=== PATIENT | female | born 1945 | race Hispanic/Latino ===

== ENCOUNTER 2018-05-20 15:39 | Inpatient (IN) | payer MEDICARE ==
[2018-05-20] MEDS ORDERED: DILAUDID ONE (15:59)
[2018-05-20] MEDS ORDERED: DILAUDID IV ONE (16:00)
--- NOTE | 2018-05-20 16:12 | Emergency Department Report ---
ED Lower Extremity HPI - General Chief Complaint: Extremity Injury, Lower Stated Complaint: FELL ON LEFT ANKLE Time Seen by Provider: 05/20/18 16:07 Source: patient, EMS Mode of arrival: Stretcher Limitations: No Limitations - History of Present Illness Initial Comments: Patient states he was stepping down a curb and twisted ankle. Complaint: ankle injury -: Sudden, This afternoon Injury: Ankle: Left Type of Injury: eversion Place: home Severity: severe Severity scale (0 -10): 10 Improves With: immobilization, rest Worsens With: movement Context: walking Associated Symptoms: unable to bear weight Treatments Prior to Arrival: splint - Related Data Allergies Allergy/AdvReac Type Severity Reaction Status Date / Time No Known Allergies Allergy Verified 05/20/18 16:12 ED Review of Systems ROS: Stated complaint: FELL ON LEFT ANKLE Other details as noted in HPI Comment: All other systems reviewed and negative Constitutional: denies: chills, fever Eyes: denies: eye pain ENT: denies: ear pain Respiratory: denies: cough, shortness of breath Cardiovascular: denies: chest pain, palpitations, dyspnea on exertion Endocrine: no symptoms reported Gastrointestinal: denies: abdominal pain, nausea, vomiting, diarrhea Genitourinary: denies: urgency, dysuria, frequency Musculoskeletal: joint swelling, other (Left ankle pain and deformity). denies : back pain Skin: denies: rash, change in color Neurological: denies: headache, weakness, numbness Psychiatric: denies: anxiety, depression Hematological/Lymphatic: denies: easy bleeding, easy bruising ED Past Medical Hx - Past Medical History Previous Medical History?: Yes Hx Hypertension: Yes Hx Diabetes: Yes - Surgical History Past Surgical History?: Yes - Social History Smoking Status: Never Smoker Substance Use Type: None ED Physical Exam - General Limitations: No Limitations General appearance: alert, in distress - Head Head exam: Present: atraumatic, normocephalic, normal inspection - Eye Eye exam: Present: normal appearance, PERRL, EOMI Pupils: Present: normal accommodation - ENT ENT exam: Present: normal exam, normal orophraynx, mucous membranes moist - Neck Neck exam: Present: normal inspection, full ROM. Absent: tenderness - Respiratory Respiratory exam: Present: normal lung sounds bilaterally. Absent: respiratory distress, wheezes, rales, rhonchi - Cardiovascular Cardiovascular Exam: Present: regular rate, normal rhythm, normal heart sounds - GI/Abdominal GI/Abdominal exam: Present: soft, normal bowel sounds. Absent: distended, tenderness, guarding, rebound - Extremities Exam Extremities exam: Present: normal capillary refill, joint swelling, other (Left ankle deformity due to dislocation.) ED Course Vital Signs 05/20/18 05/20/18 05/20/18 15:55 17:26 17:30 Temperature 97.8 F Pulse Rate 68 Pulse Rate [ Intra-Procedure ] Pulse Rate [ Post-Procedure] Respiratory 19 Rate Respiratory Rate [Intra- Procedure] Respiratory Rate [Post- Procedure] Blood Pressure 154/53 154/53 Blood Pressure [Intra- Procedure] Blood Pressure [Post-Procedure ] Blood Pressure 140/68 [Right] O2 Sat by Pulse 99 98 98 Oximetry O2 Sat by Pulse Oximetry [ Intra-Procedure ] O2 Sat by Pulse Oximetry [Post -Procedure] 05/20/18 05/20/18 05/20/18 17:46 18:00 18:29 Temperature Pulse Rate 61 64 Pulse Rate [ 64 Intra-Procedure ] Pulse Rate [ Post-Procedure] Respiratory 17 12 Rate Respiratory 12 Rate [Intra- Procedure] Respiratory Rate [Post- Procedure] Blood Pressure 136/56 134/55 Blood Pressure 173/64 [Intra- Procedure] Blood Pressure [Post-Procedure ] Blood Pressure [Right] O2 Sat by Pulse 99 98 Oximetry O2 Sat by Pulse 100 Oximetry [ Intra-Procedure ] O2 Sat by Pulse Oximetry [Post -Procedure] 05/20/18 18:34 Temperature Pulse Rate Pulse Rate [ Intra-Procedure ] Pulse Rate [ 62 Post-Procedure] Respiratory Rate Respiratory Rate [Intra- Procedure] Respiratory 16 Rate [Post- Procedure] Blood Pressure Blood Pressure [Intra- Procedure] Blood Pressure 167/62 [Post-Procedure ] Blood Pressure [Right] O2 Sat by Pulse Oximetry O2 Sat by Pulse Oximetry [ Intra-Procedure ] O2 Sat by Pulse 100 Oximetry [Post -Procedure] - Reevaluation(s) Reevaluation #1: 05/20/18 19:12 [employer] Res[employer]cher did decrease surgeon on-call Dr. Lux. He recommend reducing the ankle dislocation and splinting it. He wants the hospitalist to admit patient for surgery tomorrow. Reevaluation #2: 05/20/18 19:18 Patient care was discussed with the hospitalist on-call Dr Mccarthy. He will admit patient to the hospital for further evaluation and management. - Orthopedic Joint Reduction Joint #1 Consent Obtained: verbal consent, written consent Time Out Performed: Yes Side: left Joint Reduction Location: ankle Analgesia: other (Conscious sedation) Local Anesthetic Used: other anesthetic (Etomidate) Amount of Anesthetic Used (mls): 3 (6 mg) Technique Used: direct manipulation Post-Reduction Neuro Exam: intact Post-Reduction Vascular Exam: intact Post Reduction X-Ray Obtained: Yes Post Reduction X-Ray Results: reduced Splint Applied: Yes Patient Tolerated Procedure: well ED Lower Extremity MDM - Lab Data Result diagrams: 05/20/18 16:27 05/20/18 16:27 - Radiology Data Radiology results: report reviewed, image reviewed - Medical Decision Making Left Ankle Fracture/Dislocation. Critical Care Time: Yes Critical care time in (mins) excluding proc time.: 65 Critical care attestation.: If time is entered above; I have spent that time in minutes in the direct care of this critically ill patient, excluding procedure time. ED Disposition Clinical Impression: Dislocation of left ankle joint, initial encounter Dislocation of distal end of left fibula Qualifiers: Encounter type: initial encounter Qualified Code(s): S93.05XA - Dislocation of left ankle joint, initial encounter Disposition: OP ADMIT IP TO THIS HOSP Is pt being admited?: Yes Does the pt Need Aspirin: No Condition: Stable Referrals: PRIMARY CARE,MD [Primary Care Provider] - 3-5 Days Time of Disposition: 19:00
[2018-05-20 16:40] LABS: Basophils # (Auto) 0.1 K/mm3 (0.0-0.1); Basophils % (Auto) 0.7 % (0.0-1.8); Eosinophils # (Auto) 0.3 K/mm3 (0.0-0.4); Eosinophils % (Auto) 1.8 % (0.0-4.3); Hematocrit 36.8 % (30.3-42.9); Hemoglobin 12.4 gm/dl (10.1-14.3); Lymphocytes # (Auto) 2.5 K/mm3 (1.2-5.4); Lymphocytes % (Auto) 17.6 % (13.4-35.0); Mean Corpuscular HGB Conc 34 % (30-34); Mean Corpuscular Hemoglobin 30 pg (28-32); Mean Corpuscular Volume 88 fl (79-97); Monocytes # (Auto) 0.9 K/mm3 (0.0-0.8); Monocytes % (Auto) 6.7 % (0.0-7.3); Platelet Count 231 K/mm3 (140-440); Red Blood Count 4.17 M/mm3 (3.65-5.03); Red Cell Distribution Width 13.7 % (13.2-15.2)
[2018-05-20 16:48] LABS: INR 0.88 (0.87-1.13); Partial Thromboplastin Time 23.3 Sec. (24.2-36.6)
--- NOTE | 2018-05-20 17:03 | XRay Report ---
FINAL REPORT EXAM: XR FOOT 2V LT HISTORY: post fall, obvious deformity TECHNIQUE: AP and lateral views of the left foot PRIORS: None. FINDINGS: There is an acute fracture/dislocation of the ankle. Comminuted fracture of the distal fibula is seen and dislocation of the tibiotalar joint is noted. No other fractures. Or dislocations involving the foot are noted. Spurring off the dorsum of the tarsometatarsal junctions and off the plantar calcaneus is noted. IMPRESSION: Acute fracture/dislocation of the ankle
[2018-05-20] MEDS ORDERED: BOOSTRIX IM ONE (17:08)
--- NOTE | 2018-05-20 17:09 | XRay Report ---
FINAL REPORT EXAM: XR TIBIA FIBULA 2V LT HISTORY: post fall leg pain TECHNIQUE: AP and lateral views of the left fibula PRIORS: None. FINDINGS: There is an acute fracture/dislocation at the ankle. Dislocation at the tibiotalar joint is noted with angulation the directed medially. The tibial shaft is located medial to the talus. There is an oblique acute fracture of the distal fibula with angulation. The apex is directed in a medial direction. Overriding of the fracture fragments is noted. The fibular shaft fragment maintains articulation with the distal tibia. IMPRESSION: Acute fracture/dislocation at the ankle.
--- NOTE | 2018-05-20 17:10 | XRay Report ---
FINAL REPORT EXAM: XR ANKLE 2V LT HISTORY: post fall, obvious deformity TECHNIQUE: AP and lateral views of the left ankle PRIORS: None. FINDINGS: There is an acute fracture/dislocation of the ankle. The tibiotalar joint is dislocated with angulation and the apex directed medially. The tibial shaft is displaced medial to the talar dome. There is an acute oblique fracture through the distal fibular shaft. Overriding the fracture fragments is noted. Angulation is also noted directed medially. IMPRESSION: Acute fracture/dislocation of the ankle.
[2018-05-20 17:14] LABS: Alanine Aminotransferase 16 units/L (7-56); BUN/Creatinine Ratio 23; Blood Urea Nitrogen 21 mg/dL (7-17); Calcium 8.7 mg/dL (8.4-10.2); Hemolysis Index 6
[2018-05-20] MEDS ORDERED: NACL 0.9% 1000 ML 1,000 ML ONE (17:54)
[2018-05-20] MEDS ORDERED: NACL 0.9% 1000 ML 1,000 ML IV ONE (17:55)
[2018-05-20] MEDS ORDERED: AMIDATE IV ONE ×2 (18:09→18:36)
--- NOTE | 2018-05-20 20:47 | XRay Report ---
FINAL REPORT EXAM: XR ANKLE 2V LT HISTORY: Post reduction TECHNIQUE: AP and lateral views of the left ankle PRIORS: left ankle x-rays 05/20/2018 at 2047 hours FINDINGS: Overlying splint is now in place. There has been successful repositioning of the dislocation. However, there is still widening of the medial aspect of the tibiotalar joint. Positioning of the tibia and talus on the lateral film is satisfactory. There is still mild overriding of the oblique fracture fragments of the distal fibula. IMPRESSION: Improved positioning and reduction of the tibiotalar dislocation. There is still widening of the tibiotalar joint medially. There also some persistent overriding of the oblique fracture fragments in the fibula.
[2018-05-20] MEDS ORDERED: TYLENOL PO PRN ×2 (23:02→23:09)
--- NOTE | 2018-05-20 23:02 | Event Note ---
Date: 05/20/18 See dictated history and physical in the reports Ankle fracture
[2018-05-20] MEDS ORDERED: ZOFRAN IV PRN (23:09)
[2018-05-20] MEDS ORDERED: SODIUM CHLORIDE FLUSH SYRINGE 10 ML IV PRN (23:09)
[2018-05-20] MEDS: MORPHINE IV PRN (23:16)
--- NOTE | 2018-05-20 23:38 | History and Physical Report ---
CHIEF COMPLAINT: Left ankle injury. HISTORY OF PRESENT ILLNESS: A 72-year-old female with no significant past medical history except for hypertension and diabetes, comes in for missing a step and twisting her ankle. Unable to walk, severe pain about 10/10. Any pressure on the ankle causes lot of pain. Exacerbating factor is weightbearing, relieving factor is lying flat. Pain is sharp. No shortness of breath. No fever, no chills. PAST MEDICAL HISTORY: Significant for hypertension, diabetes. PAST SURGICAL HISTORY: None. SOCIAL HISTORY: Does not smoke. No alcohol, no recreational drugs. FAMILY HISTORY: Hypertension. REVIEW OF SYSTEMS: Significant for left ankle pain and swelling. Unable to bear any weight. Otherwise, review of systems is negative. PHYSICAL EXAMINATION: GENERAL: Elderly female, cooperative during examination. VITAL SIGNS: Blood pressure is 121/47, temperature is 98.5, pulse is 62, respirations are 14. HEENT: Unremarkable. Pupils equal and reactive. NECK: Supple, no lymphadenopathy, no thyromegaly. LUNGS: Clear to auscultation and percussion. Good air entry. CARDIOVASCULAR: S1, S2 heard. No gallop, no murmur, no rub. Apical impulse in left fifth intercostal space and midclavicular line. ABDOMEN: Soft and benign. No hepatosplenomegaly. No guarding, no rigidity. Hernial orifices are normal. EXTREMITIES: Left ankle swollen. Decreased range of motion. Ankle x-ray shows an acute fracture and dislocation of the ankle. The tibiotalar joint is dislocated with ambulation in the apex directed medially. The tibial shaft is displaced medial to the talar dome. Acute oblique fracture through the distal fibular shaft. LABORATORY DATA: White count is 14,000. Electrolytes are normal. Glucose is 151, total protein is 6.1, albumin is 4.0. Glucose is 151. ASSESSMENT AND PLAN: 1. Left ankle fracture. The patient has had dislocation also, which was corrected in the Emergency Room after giving etomidate. It was done by the ER physician. The patient has fibular fracture. Orthopedics, Dr. Lux consulted. Pain management in the meantime. 2. Hypertension. The patient not on any medications. Blood pressure is normal at this point. We will initiate blood pressure medications if necessary. 3. Diabetes by history. We will initiate oral hypoglycemics as necessary. The patient put on Accu-Cheks. A1c is 6.1. 4. Deep venous thrombosis prophylaxis, Lovenox 40 mg subcutaneous daily. 5. Pain management, Dilaudid. Morphine 4 mg q.3 hours p.r.n. JOB# [id number] VSM/NTS
[2018-05-21] MEDS: PERCOCET 5/325 PO PRN (00:31)
[2018-05-21] MEDS: DILAUDID IV PRN ×5 (01:00→23:20)
[2018-05-21] MEDS: HumaLOG SUB-Q SCH ×4 (08:35→22:00)
[2018-05-21] MEDS: ZOFRAN IV PRN ×2 (09:53→19:25)
[2018-05-21] MEDS: MORPHINE IV PRN (09:53)
[2018-05-21] MEDS: PEPCID IV SCH ×2 (09:54→21:55)
[2018-05-21] MEDS: SODIUM CHLORIDE FLUSH SYRINGE 10 ML IV SCH (09:54)
[2018-05-21] MEDS ORDERED: SODIUM CHLORIDE FLUSH SYRINGE 10 ML IV SCH (10:00)
[2018-05-21] MEDS ORDERED: NACL 0.9% 1000 ML 1,000 ML ONE (15:01)
--- NOTE | 2018-05-21 15:01 | Anesthesia Consultation ---
Anesthesia Consult and Med Hx Date of service: 05/21/18 - Airway Anesthetic Teeth Evaluation: Poor, Caps, Crowns ROM Head & Neck: Adequate Mental/Hyoid Distance: Inadequate Mallampati Class: Class III Intubation Access Assessment: Possibly Difficult - Pulmonary Exam CTA: Yes - Cardiac Exam Cardiac Exam: No Murmur - Pre-Operative Health Status ASA Pre-Surgery Classification: ASA2 Proposed Anesthetic Plan: General - Pre-Anesthesia Comment Pre-Anesthesia Comments: fell and broke angle while walking on ramp from shed. patient tolerates 6 METS. No chest pain or SOB. no cold or flu. GERD: controlled with OTC PPI. No symptoms on empty stomach. NIDDM. HTN - Cardiovascular System Hx Hypertension: Yes - Gastrointestinal Hx Gastroesophageal Reflux Disease: Yes - Endocrine Hx Non-Insulin Dependent Diabetes: Yes
--- NOTE | 2018-05-21 15:02 | Anesthesia Day of Surgery ---
Anesthesia Day of Surgery - Day of Surgery Patient Examined: Yes Patient H&P Reviewed: Yes Patient is NPO: Yes
[2018-05-21] MEDS ORDERED: ANCEF/STERILE WATER 2 GM/20 ML IV NR (16:00)
[2018-05-21] MEDS ORDERED: XYLOCAINE MPF 2% ONE (16:14)
[2018-05-21] MEDS ORDERED: SUBLIMAZE ONE (16:14)
[2018-05-21] MEDS ORDERED: DIPRIVAN 10 MG/ML IV ONE (16:15)
[2018-05-21] MEDS ORDERED: NACL 0.9% IR ONE (16:20)
[2018-05-21] MEDS ORDERED: MARCAINE 0.5% INFILTRATI ONE (16:20)
[2018-05-21] MEDS ORDERED: MARCAINE 0.5% 30 ML INFILTRATI ONE (17:09)
--- NOTE | 2018-05-21 17:43 | Procedure Note ---
Date of procedure: 05/21/18 Pre-op diagnosis: fracture separation left ankle Post-op diagnosis: same Procedure: Open reduction internal fixation left distal fibula Procedure The patient was brought to the OR placing our table as a supine position following induction of ratio and anesthesia patient's left lower extremity was prepped and draped in the usual sterile manner a timeout procedure was done to identify the patient and the correct operative site The leg was exsanguinated followed by inflation of the pneumatic tourniquet to 300 mm Hg. a lateral incision was made along the distal fibula distally and down sharply through skin and subcutaneous down to periosteum the fracture site was identified following manipulation of the fracture fragments a bone clamp was used to stabilize A interfragmentary screw was applied from anterior to posterior A 6-hole one third semitubular plate was was applied to the distal fibula under C-arm visualization the leg was stabilize with screws of various lengths including cortical and cancellus screws AP and lateral views were obtained on the table showed good reduction of the fracture and placement of the hardware next the wound was copiously irrigated with saline solution and was closed in a standard routine fashion for subcutaneous dressings were applied as well as a well-padded posterior mold patient tolerated the procedure complications Hg Anesthesia: GETA Surgeon: DERRICK OBRIEN Estimated blood loss: minimal Pathology: none Condition: stable Disposition: PACU
[2018-05-21] MEDS ORDERED: SODIUM CHLORIDE FLUSH SYRINGE 10 ML IV NR (18:00)
[2018-05-21] MEDS ORDERED: ANCEF/NS 1 GM/50 ML 1 GM/50 ML BAG IV SCH (18:00)
[2018-05-21] MEDS: APRESOLINE IV PRN (18:30)
--- NOTE | 2018-05-21 20:48 | XRay Report ---
FINAL REPORT EXAM: XR ANKLE 2V LT HISTORY: LT FIBULA FX/ORIF LT ANKLE TECHNIQUE: AP and lateral intraoperative views of the left foot PRIORS: None. FINDINGS: Plate and screw device is present in the distal fibula with fracture fragments in satisfactory alignment. Ankle mortise appears in satisfactory alignment. IMPRESSION: Satisfactory postoperative ORIF of distal fibular fracture
[2018-05-21] MEDS: LOVENOX SUB-Q SCH (21:55)
[2018-05-22] MEDS: ceFAZolin 1 GM in NACL 0.9% 20 ML IV SCH ×2 (00:20→08:20)
[2018-05-22] MEDS: SODIUM CHLORIDE FLUSH SYRINGE 10 ML IV SCH ×3 (00:22→22:14)
[2018-05-22] MEDS: DILAUDID IV PRN ×7 (02:07→20:08)
[2018-05-22] MEDS: HumaLOG SUB-Q SCH ×4 (08:48→22:13)
[2018-05-22 09:42] LABS: Hematocrit 35.8 % (30.3-42.9); Hemoglobin 11.7 gm/dl (10.1-14.3); Mean Corpuscular HGB Conc 33 % (30-34); Mean Corpuscular Hemoglobin 30 pg (28-32); Mean Corpuscular Volume 92 fl (79-97); Platelet Count 198 K/mm3 (140-440); Red Cell Distribution Width 14.3 % (13.2-15.2)
[2018-05-22] MEDS: PEPCID IV SCH ×2 (09:49→22:13)
[2018-05-22 10:15] LABS: BUN/Creatinine Ratio 20; Blood Urea Nitrogen 14 mg/dL (7-17); Calcium 8.3 mg/dL (8.4-10.2); Hemolysis Index 41
--- NOTE | 2018-05-22 11:36 | Progress Note ---
Assessment and Plan Assessment and plan: left ankle fracture s/p ORIF on 05/[address] Lux, Ortho Increase dose of Dilaudid Diabetes mellitus type 2. Check fingerstick Qac and hs Metformin Full code status History Interval history: s/p left ORIF left ankle yesterday 05/21/18 pain left ankle Hospitalist Physical - Physical exam Narrative exam: Gen : Not in acute distress, Obese HEENT:Normocephalic, atraumatic Neck: supple, No JVD Lungs: Clear to auscultation, bilaterally, no rhonchi Heart :S1 and S2 reg, no murmurs, rubs or gallop Abd:soft, non tender, non distended, normal bowel sounds Ext: No edema, no clubbing, no cyanosis, left foot and ankle covered with post- dressing,splint Neuro: Awake,alert,oriented x 3, no focal signs Psych:normal mood - Constitutional Vitals: Temp Pulse Resp BP Pulse Ox 98.9 F 76 20 149/46 95 05/22/18 07:40 05/22/18 07:40 05/22/18 07:40 05/22/18 07:40 05/22/18 09:13 Results - Labs CBC & Chem 7: 05/23/18 05:14 05/23/18 05:14 Labs: Laboratory Last Values WBC 11.4 K/mm3 (4.5-11.0) H 05/22/18 08:43 RBC 3.90 M/mm3 (3.65-5.03) 05/22/18 08:43 Hgb 11.7 gm/dl (10.1-14.3) 05/22/18 08:43 Hct 35.8 % (30.3-42.9) 05/22/18 08:43 MCV 92 fl (79-97) 05/22/18 08:43 MCH 30 pg (28-32) 05/22/18 08:43 MCHC 33 % (30-34) 05/22/18 08:43 RDW 14.3 % (13.2-15.2) 05/22/18 08:43 Plt Count 198 K/mm3 (140-440) 05/22/18 08:43 Lymph % (Auto) 17.6 % (13.4-35.0) 05/20/18 16:27 [place] % (Auto) 6.7 % (0.0-7.3) 05/20/18 16:27 Eos % (Auto) 1.8 % (0.0-4.3) 05/20/18 16:27 Baso % (Auto) 0.7 % (0.0-1.8) 05/20/18 16:27 Lymph # 2.5 K/mm3 (1.2-5.4) 05/20/18 16:27 [place] # 0.9 K/mm3 (0.0-0.8) H 05/20/18 16:27 Eos # 0.3 K/mm3 (0.0-0.4) 05/20/18 16:27 Baso # 0.1 K/mm3 (0.0-0.1) 05/20/18 16:27 Seg Neutrophils % 73.2 % (40.0-70.0) H 05/20/18 16:27 Seg Neutrophils # 10.2 K/mm3 (1.8-7.7) H 05/20/18 16:27 PT 12.4 Sec. (12.2-14.9) 05/20/18 16:27 INR 0.88 (0.87-1.13) 05/20/18 16:27 APTT 23.3 Sec. (24.2-36.6) L 05/20/18 16:27 Sodium 141 mmol/L (137-145) 05/22/18 08:43 Potassium 3.7 mmol/L (3.6-5.0) 05/22/18 08:43 Chloride 103.7 mmol/L (98-107) 05/22/18 08:43 Carbon Dioxide 21 mmol/L (22-30) L 05/22/18 08:43 Anion Gap 20 mmol/L 05/22/18 08:43 BUN 14 mg/dL (7-17) 05/22/18 08:43 Creatinine 0.7 mg/dL (0.7-1.2) 05/22/18 08:43 Estimated GFR > 60 ml/min 05/22/18 08:43 BUN/Creatinine Ratio 20 % 05/22/18 08:43 Glucose 117 mg/dL (65-100) H 05/22/18 08:43 POC Glucose 123 (70-105) H 05/22/18 07:46 Calcium 8.3 mg/dL (8.4-10.2) L 05/22/18 08:43 Total Bilirubin 0.50 mg/dL (0.1-1.2) 05/20/18 16:27 AST 21 units/L (5-40) 05/20/18 16:27 ALT 16 units/L (7-56) 05/20/18 16:27 Alkaline Phosphatase 44 units/L (35-129) 05/20/18 16:27 Total Protein 6.1 g/dL (6.3-8.2) L 05/20/18 16:27 Albumin 4.0 g/dL (3.9-5) 05/20/18 16:27 Albumin/Globulin Ratio 1.9 % 05/20/18 16:27
--- NOTE | 2018-05-22 17:10 | Post Anesthesia Evaluation ---
- Post Anesthesia Evaluation Patient Participated: Yes Airway Patent: Yes Stable Respiratory Function: Yes Nausea/Vomiting: No Temp > 96.8F: Yes Pain Manageable: Yes Adequeate Hydration: Yes Anesthesia Complications: No Block Receding Appropriately: Not Applicable Patient on Ventilator: No
[2018-05-22] MEDS: SODIUM CHLORIDE FLUSH SYRINGE 10 ML IV PRN (20:09)
[2018-05-22] MEDS: LOVENOX SUB-Q SCH (22:13)
[2018-05-22] MEDS: PERCOCET 5/325 PO PRN (22:14)
[2018-05-22] MEDS: LACTATED RINGERS 1,000 ML IV SCH (22:15)
[2018-05-23] MEDS: DILAUDID IV PRN ×6 (00:10→20:05)
[2018-05-23] MEDS ORDERED: LOPRESSOR PO ONE (04:00)
[2018-05-23] MEDS: SODIUM CHLORIDE FLUSH SYRINGE 10 ML IV PRN (04:06)
[2018-05-23 06:24] LABS: Hematocrit 33.6 % (30.3-42.9); Hemoglobin 11.4 gm/dl (10.1-14.3); Mean Corpuscular HGB Conc 34 % (30-34); Mean Corpuscular Hemoglobin 31 pg (28-32); Mean Corpuscular Volume 91 fl (79-97); Platelet Count 191 K/mm3 (140-440); Red Blood Count 3.71 M/mm3 (3.65-5.03)
[2018-05-23 06:51] LABS: BUN/Creatinine Ratio 20; Blood Urea Nitrogen 12 mg/dL (7-17); Calcium 8.6 mg/dL (8.4-10.2); Hemolysis Index 1
[2018-05-23] MEDS: HumaLOG SUB-Q SCH ×6 (08:30→21:52)
[2018-05-23] MEDS: PEPCID IV SCH ×2 (09:41→22:08)
[2018-05-23] MEDS: LACTATED RINGERS 1,000 ML IV SCH ×2 (09:41→20:13)
[2018-05-23] MEDS: GLUCOPHAGE XR PO SCH ×2 (09:41→22:07)
[2018-05-23] MEDS: SODIUM CHLORIDE FLUSH SYRINGE 10 ML IV SCH ×2 (09:42→22:08)
--- NOTE | 2018-05-23 10:50 | Consultation ---
History of Present Illness Consult date: 05/23/18 Consult reason: atrial fibrillation, tachycardia History of present illness: 72-year-old woman admitted to this hospital 3 days ago following a fall at home that resulted in fracture of her left ankle. The fall resulted from her slipping and losing her footing. There was no dizziness or syncope associated with the episode. She underwent surgery 2 days ago consisting of open reduction and internal fixation of the left ankle joint. Yesterday, while on routine telemetry, the patient was noted with intermittent tachycardia with heart rate as high as 130. Episodes were intermittent and telemetry strips show paroxysmal, rapid atrial fibrillation with spontaneous reversion to sinus rhythm. Patient has no symptoms of chest pain, shortness of breath and palpitations during these episodes. There is no prior history of atrial fibrillation or other cardiac history. Comorbidities include history of diabetes on metformin and mild hypertension on hydrochlorothiazide. On review of the chart, there is no 12-lead EKG either preoperatively or following surgery. The telemetry strips show a stable sinus rhythm with the intermittent bursts of rapid atrial fibrillation. Past History Past Medical History: diabetes, hypertension Medications and Allergies Allergies Allergy/AdvReac Type Severity Reaction Status Date / Time No Known Allergies Allergy Verified 05/20/18 16:12 Home Medications Medication Instructions Recorded Confirmed Last Taken Type metFORMIN XR [Glucophage XR] 1,000 mg PO BID 05/21/18 05/21/18 1 Day Ago History ~05/20/18 Active Meds: Active Medications Acetaminophen (Tylenol) 650 mg PO Q4H PRN PRN Reason: Pain MILD(1-3)/Fever >100.5/IVAN Enoxaparin Sodium (Lovenox) 40 mg SUB-Q QDAY@2200 [facility] Last Admin: 05/22/18 22:13 Dose: 40 mg Famotidine (Pepcid) 20 mg IV BID [facility] Last Admin: 05/23/18 09:41 Dose: 20 mg Hydralazine HCl (Apresoline) 10 mg IV Q20MIN PRN PRN Reason: systollic greater than 170 Last Admin: 05/21/18 18:30 Dose: 10 mg Hydromorphone HCl (Dilaudid) 1 mg IV Q4H PRN PRN Reason: Pain , Severe (7-10) Last Admin: 05/23/18 07:53 Dose: 1 mg Lactated Ringer's (Lactated Ringers) 1,000 mls @ 125 mls/hr IV DIRECT [facility] Last Admin: 05/23/18 09:41 Dose: 125 mls/hr Insulin Human Lispro (Humalog) 0 unit SUB-Q ACHS [facility]; Protocol Last Admin: 05/23/18 08:30 Dose: Not Given Metformin HCl (Glucophage Xr) 1,000 mg PO BID [facility] Last Admin: 05/23/18 09:41 Dose: 1,000 mg Morphine Sulfate (Morphine) 2 mg IV Q4H PRN PRN Reason: Pain, Moderate (4-6) Last Admin: 05/21/18 09:53 Dose: 2 mg Ondansetron HCl (Zofran) 4 mg IV Q8H PRN PRN Reason: Nausea And Vomiting Last Admin: 05/21/18 19:25 Dose: 4 mg Oxycodone/Acetaminophen (Percocet 5/325) 1 tab PO Q6H PRN PRN Reason: Pain, Moderate (4-6) Last Admin: 05/22/18 22:14 Dose: 1 tab Sodium Chloride (Sodium Chloride Flush Syringe 10 Ml) 10 ml IV BID [facility] Last Admin: 05/23/18 09:42 Dose: 10 ml Sodium Chloride (Sodium Chloride Flush Syringe 10 Ml) 10 ml IV PRN PRN PRN Reason: LINE FLUSH Last Admin: 05/23/18 04:06 Dose: 10 ml Review of Systems Cardiovascular: no chest pain, no orthopnea, no palpitations, no rapid/ irregular heart beat, no edema, no syncope, no lightheadedness, no shortness of breath Physical Examination Vital Signs Temp Pulse Resp BP Pulse Ox 97.8 F 68 19 140/68 99 05/20/18 15:55 05/20/18 15:55 05/20/18 15:55 05/20/18 15:55 05/20/18 15:55 General appearance: no acute distress HEENT: Positive: PERRL Neck: Positive: neck supple Cardiac: Positive: Reg Rate and Rhythm Lungs: Positive: Decreased Breath Sounds Neuro: Positive: Grossly Intact Abdomen: Positive: Soft Female genitourinary: deferred Skin: Positive: Clear Extremities: Absent: edema Results 05/23/18 05:14 05/23/18 05:14 CBC 05/23/18 Range/Units 05:14 WBC 10.9 (4.5-11.0) K/mm3 RBC 3.71 (3.65-5.03) M/mm3 Hgb 11.4 (10.1-14.3) gm/dl Hct 33.6 (30.3-42.9) % Plt Count 191 (140-440) K/mm3 Comprehensive Metabolic Panel 05/23/18 Range/Units 05:14 Sodium 139 (137-145) mmol/L Potassium 3.6 (3.6-5.0) mmol/L Chloride 101.1 (98-107) mmol/L Carbon Dioxide 22 (22-30) mmol/L BUN 12 (7-17) mg/dL Creatinine 0.6 L (0.7-1.2) mg/dL Glucose 107 H (65-100) mg/dL Calcium 8.6 (8.4-10.2) mg/dL Assessment and Plan - Patient Problems (1) Paroxysmal atrial fibrillation Current Visit: Yes Status: Acute Plan to address problem: 72-year-old woman with new onset, paroxysmal atrial fibrillation following left ankle surgery. Recommendations: Metoprolol 25 mg every 8 hours. Oral anticoagulation with Xarelto. Twelve-lead EKG. We also recommended echocardiogram for left ventricular function assessment, but the patient's declined additional cardiac testing.
--- NOTE | 2018-05-23 12:03 | Progress Note ---
Assessment and Plan s/p ORIF left ankle doing well, continue PT ... hopefully dc to home soon Subjective Date of service: 05/23/18 Interval history: states she feel "out of it", at bedside...PT started... Objective Vital signs: Vital Signs - 12hr 05/23/18 05/23/18 05/23/18 00:28 00:50 03:00 Temperature 99.3 F 98.0 F Pulse Rate 131 H 131 H 122 H Pulse Rate [ Apical] Respiratory 20 18 Rate Blood Pressure 162/60 143/63 Blood Pressure [Right] O2 Sat by Pulse 94 96 Oximetry 05/23/18 05/23/18 05/23/18 03:25 07:04 07:16 Temperature 98.4 F Pulse Rate 68 130 H Pulse Rate [ 122 H Apical] Respiratory 20 20 Rate Blood Pressure 145/62 Blood Pressure [Right] O2 Sat by Pulse 96 93 Oximetry 05/23/18 05/23/18 07:23 07:53 Temperature 98.4 F Pulse Rate 116 H Pulse Rate [ Apical] Respiratory Rate Blood Pressure Blood Pressure 145/62 [Right] O2 Sat by Pulse 20 L 93 Oximetry Narrative Exam: left ankle - post op dressing/splint intact, no drainage noted, good capillary refill - Labs CBC & BMP: 05/23/18 05:14 05/23/18 05:14 Labs: Abnormal lab results 05/22/18 05/22/18 05/22/18 Range/Units 12:04 16:40 21:20 Creatinine (0.7-1.2) mg/dL Glucose (65-100) mg/dL POC Glucose 121 H 124 H 116 H (70-105) 05/23/18 05/23/18 05/23/18 Range/Units 05:14 08:10 11:46 Creatinine 0.6 L (0.7-1.2) mg/dL Glucose 107 H (65-100) mg/dL POC Glucose 112 H 163 H (70-105)
[2018-05-23] MEDS: LOPRESSOR PO SCH ×2 (12:18→22:08)
[2018-05-23] MEDS: ZOFRAN IV PRN (14:42)
--- NOTE | 2018-05-23 15:29 | Progress Note ---
Assessment and Plan Assessment and plan: left ankle fracture s/p ORIF on 05/[address] Lux, Ortho Continue Dilaudid Physical therapy Paroxysmal afib.on Tele overnight. Started on Xarelto, Metoprolol by Cardiology Diabetes mellitus type 2. Check fingerstick Qac and hs Metformin Full code status Likel;y dc home with home health in 1-2 days History Interval history: s/p left ORIF left ankle 05/21/18 pain left ankle Hospitalist Physical - Physical exam Narrative exam: Gen : Not in acute distress, Obese HEENT:Normocephalic, atraumatic Neck: supple, No JVD Lungs: Clear to auscultation, bilaterally, no rhonchi Heart :S1 and S2 reg, no murmurs, rubs or gallop Abd:soft, non tender, non distended, normal bowel sounds Ext: No edema, no clubbing, no cyanosis, left foot and ankle covered with post- dressing,splint Neuro: Awake,alert,oriented x 3, no focal signs Psych:normal mood - Constitutional Vitals: Temp Pulse Resp BP Pulse Ox 98.4 F 81 20 157/60 93 05/23/18 07:23 05/23/18 12:18 05/23/18 07:04 05/23/18 12:18 05/23/18 07:53 General appearance: Present: no acute distress Results - Labs CBC & Chem 7: 05/23/18 05:14 05/23/18 05:14 Labs: Laboratory Last Values WBC 10.9 K/mm3 (4.5-11.0) 05/23/18 05:14 RBC 3.71 M/mm3 (3.65-5.03) 05/23/18 05:14 Hgb 11.4 gm/dl (10.1-14.3) 05/23/18 05:14 Hct 33.6 % (30.3-42.9) 05/23/18 05:14 MCV 91 fl (79-97) 05/23/18 05:14 MCH 31 pg (28-32) 05/23/18 05:14 MCHC 34 % (30-34) 05/23/18 05:14 RDW 14.0 % (13.2-15.2) 05/23/18 05:14 Plt Count 191 K/mm3 (140-440) 05/23/18 05:14 Lymph % (Auto) 17.6 % (13.4-35.0) 05/20/18 16:27 [place] % (Auto) 6.7 % (0.0-7.3) 05/20/18 16:27 Eos % (Auto) 1.8 % (0.0-4.3) 05/20/18 16:27 Baso % (Auto) 0.7 % (0.0-1.8) 05/20/18 16:27 Lymph # 2.5 K/mm3 (1.2-5.4) 05/20/18 16:27 [place] # 0.9 K/mm3 (0.0-0.8) H 05/20/18 16:27 Eos # 0.3 K/mm3 (0.0-0.4) 05/20/18 16:27 Baso # 0.1 K/mm3 (0.0-0.1) 05/20/18 16:27 Seg Neutrophils % 73.2 % (40.0-70.0) H 05/20/18 16:27 Seg Neutrophils # 10.2 K/mm3 (1.8-7.7) H 05/20/18 16:27 PT 12.4 Sec. (12.2-14.9) 05/20/18 16:27 INR 0.88 (0.87-1.13) 05/20/18 16:27 APTT 23.3 Sec. (24.2-36.6) L 05/20/18 16:27 Sodium 139 mmol/L (137-145) 05/23/18 05:14 Potassium 3.6 mmol/L (3.6-5.0) 05/23/18 05:14 Chloride 101.1 mmol/L (98-107) 05/23/18 05:14 Carbon Dioxide 22 mmol/L (22-30) 05/23/18 05:14 Anion Gap 20 mmol/L 05/23/18 05:14 BUN 12 mg/dL (7-17) 05/23/18 05:14 Creatinine 0.6 mg/dL (0.7-1.2) L 05/23/18 05:14 Estimated GFR > 60 ml/min 05/23/18 05:14 BUN/Creatinine Ratio 20 % 05/23/18 05:14 Glucose 107 mg/dL (65-100) H 05/23/18 05:14 POC Glucose 163 (70-105) H 05/23/18 11:46 Calcium 8.6 mg/dL (8.4-10.2) 05/23/18 05:14 Total Bilirubin 0.50 mg/dL (0.1-1.2) 05/20/18 16:27 AST 21 units/L (5-40) 05/20/18 16:27 ALT 16 units/L (7-56) 05/20/18 16:27 Alkaline Phosphatase 44 units/L (35-129) 05/20/18 16:27 Total Protein 6.1 g/dL (6.3-8.2) L 05/20/18 16:27 Albumin 4.0 g/dL (3.9-5) 05/20/18 16:27 Albumin/Globulin Ratio 1.9 % 05/20/18 16:27
[2018-05-23] MEDS: XARELTO PO SCH (16:27)
[2018-05-23] MEDS: PERCOCET 5/325 PO PRN (22:08)
[2018-05-24] MEDS: DILAUDID IV PRN ×3 (00:08→08:28)
[2018-05-24] MEDS: SODIUM CHLORIDE FLUSH SYRINGE 10 ML IV PRN ×2 (00:09→04:15)
[2018-05-24] MEDS: LOPRESSOR PO SCH ×3 (04:13→22:27)
[2018-05-24] MEDS: PERCOCET 5/325 PO PRN ×4 (05:07→20:17)
[2018-05-24] MEDS: LACTATED RINGERS 1,000 ML IV SCH ×3 (05:09→22:10)
[2018-05-24] MEDS: HumaLOG SUB-Q SCH ×4 (07:54→22:26)
[2018-05-24] MEDS: SODIUM CHLORIDE FLUSH SYRINGE 10 ML IV SCH ×2 (10:04→22:39)
[2018-05-24] MEDS: GLUCOPHAGE XR PO SCH ×2 (10:04→22:28)
[2018-05-24] MEDS: PEPCID IV SCH (10:06)
--- NOTE | 2018-05-24 14:00 | Progress Note ---
Assessment and Plan - Patient Problems (1) Paroxysmal atrial fibrillation Current Visit: Yes Status: Acute Plan to address problem: Paroxysmal atrial fibrillation following surgery. Patient is stable on metoprolol and Xarelto. Patient and have declined echocardiography for left ventricular function assessment. Cardiovascular status is stable, continue current doses of metoprolol and Xarelto on discharge. No further cardiac workup, will follow on a when necessary basis. Patient plans to follow up with her primary correspondent on discharge. Subjective Date of service: 05/24/18 Interval history: Patient's telemetry shows no further atrial fibrillation since metoprolol therapy. She remains in a stable sinus rhythm. Objective Vital Signs Temp Pulse Resp BP Pulse Ox 05/24/18 12:59 98.6 F 84 18 184/72 95 05/24/18 10:00 75 05/24/18 07:56 96 05/24/18 07:50 98.1 F 60 18 137/44 96 05/24/18 04:25 63 05/24/18 02:14 98.4 F 60 16 124/49 92 05/23/18 22:00 73 20 96 05/23/18 21:54 90 05/23/18 20:29 100.4 F H 82 16 176/64 92 05/23/18 19:20 75 05/23/18 14:59 98.6 F 70 20 158/55 80 L - Physical Examination General: Appears Well, No Apparent Distress HEENT: Positive: PERRL Neck: Positive: neck supple Cardiac: Positive: Reg Rate and Rhythm Lungs: Positive: clear to auscultation Neuro: Positive: Grossly Intact Abdomen: Positive: Soft Skin: Positive: Clear Extremities: Absent: edema
--- NOTE | 2018-05-24 15:54 | Discharge Summary ---
Providers - Providers Date of Admission: 05/20/18 19:19 Date of discharge: 05/24/18 Attending physician: CLAUDIA RICHARDSON 05/20/18 20:41 Consult to Physician [CONS] Urgent Comment: doctor came and see patient Consulting Provider: DERRICK LUX Physician Instructions: Reason For Exam: Left ankle fracture 05/21/18 17:38 Physical Therapy Evaluation and Treat [CONS] Routine Comment: Reason For Exam: post op Evaluation Weight bearing status?: Partial wt bearing Assistive devices?: Yes If so list: Walker 05/23/18 04:27 Consult to Cardiology [CONS] Routine Consulting Provider: YASH RICHARDSON Reason For Exam: Tachycardia Primary care physician: WIND TECHNICIAN Hospitalization Condition: Fair Disposition: DC/[place]-06 HOME UNDER HOME [facility] Core Measure Documentation - Palliative Care Palliative Care/ Comfort Measures: Not Applicable - Core Measures Any of the following diagnoses?: none Exam - Constitutional Vitals: Temp Pulse Resp BP Pulse Ox 98.6 F 84 18 184/72 95 05/24/18 12:59 05/24/18 14:04 05/24/18 12:59 05/24/18 14:04 05/24/18 12:59 Plan Activity: advance as tolerated Weight Bearing Status: Non-Weight Bearing Diet: low fat, low cholesterol, low salt, diabetic Special Instructions: physical therapy, home health RN Durable Medical Equipment Needed Upon Discharge: Walker-Rolling Additional Instructions: 1.Follow up with PCP in 1 week. 2.Follow up with Dr. Lux, Ortho in 1 week. 3.Follow up with Conveyor Monitor in 3-5 days Follow up with: PRIMARY CAREMD [Primary Care Provider] - 3-5 Days Prescriptions: Metoprolol [Lopressor TAB] 25 mg PO Q8H #90 tablet oxyCODONE /ACETAMINOPHEN [Percocet 5/325 mg] 1 tab PO Q6H PRN #20 tablet PRN Reason: Pain, Moderate (4-6) Rivaroxaban [Xarelto] 15 mg PO QPM@1700 #30 tablet
[2018-05-24] MEDS: ZOFRAN IV PRN ×2 (16:12→22:15)
[2018-05-24] MEDS: XARELTO PO SCH (16:58)
[2018-05-24] MEDS: APRESOLINE IV PRN (17:01)
[2018-05-24] MEDS ORDERED: MIRALAX 3350 PO PRN (17:26)
--- NOTE | 2018-05-24 21:20 | Progress Note ---
Assessment and Plan Assessment and plan: left ankle fracture s/p ORIF on 05/[address] Lux, Ortho Continue Dilaudid Physical therapy started Paroxysmal afib Started on Xarelto, Metoprolol by Cardiology Diabetes mellitus type 2. Check fingerstick Qac and hs Continue Metformin Full code status Constipated.Miralax prn. Colace Likeley dc home with home tomorrow. History Interval history: s/p left ORIF left ankle 05/21/18 pain left ankle, Vomited 2x today Hospitalist Physical - Physical exam Narrative exam: Gen : Not in acute distress, Obese HEENT:Normocephalic, atraumatic Neck: supple, No JVD Lungs: Clear to auscultation, bilaterally, no rhonchi Heart :S1 and S2 reg, no murmurs, rubs or gallop Abd:soft, non tender, non distended, normal bowel sounds Ext: No edema, no clubbing, no cyanosis, left foot and ankle covered with post- dressing,splint Neuro: Awake,alert,oriented x 3, no focal signs Psych:normal mood - Constitutional Vitals: Temp Pulse Resp BP Pulse Ox 98.8 F 66 20 170/51 97 05/24/18 16:32 05/24/18 17:01 05/24/18 20:17 05/24/18 17:01 05/24/18 16:32 General appearance: Present: no acute distress Results - Labs CBC & Chem 7: 05/23/18 05:14 05/23/18 05:14 Labs: Laboratory Last Values WBC 10.9 K/mm3 (4.5-11.0) 05/23/18 05:14 RBC 3.71 M/mm3 (3.65-5.03) 05/23/18 05:14 Hgb 11.4 gm/dl (10.1-14.3) 05/23/18 05:14 Hct 33.6 % (30.3-42.9) 05/23/18 05:14 MCV 91 fl (79-97) 05/23/18 05:14 MCH 31 pg (28-32) 05/23/18 05:14 MCHC 34 % (30-34) 05/23/18 05:14 RDW 14.0 % (13.2-15.2) 05/23/18 05:14 Plt Count 191 K/mm3 (140-440) 05/23/18 05:14 Lymph % (Auto) 17.6 % (13.4-35.0) 05/20/18 16:27 [place] % (Auto) 6.7 % (0.0-7.3) 05/20/18 16:27 Eos % (Auto) 1.8 % (0.0-4.3) 05/20/18 16:27 Baso % (Auto) 0.7 % (0.0-1.8) 05/20/18 16:27 Lymph # 2.5 K/mm3 (1.2-5.4) 05/20/18 16:27 [place] # 0.9 K/mm3 (0.0-0.8) H 05/20/18 16:27 Eos # 0.3 K/mm3 (0.0-0.4) 05/20/18 16:27 Baso # 0.1 K/mm3 (0.0-0.1) 05/20/18 16:27 Seg Neutrophils % 73.2 % (40.0-70.0) H 05/20/18 16:27 Seg Neutrophils # 10.2 K/mm3 (1.8-7.7) H 05/20/18 16:27 PT 12.4 Sec. (12.2-14.9) 05/20/18 16:27 INR 0.88 (0.87-1.13) 05/20/18 16:27 APTT 23.3 Sec. (24.2-36.6) L 05/20/18 16:27 Sodium 139 mmol/L (137-145) 05/23/18 05:14 Potassium 3.6 mmol/L (3.6-5.0) 05/23/18 05:14 Chloride 101.1 mmol/L (98-107) 05/23/18 05:14 Carbon Dioxide 22 mmol/L (22-30) 05/23/18 05:14 Anion Gap 20 mmol/L 05/23/18 05:14 BUN 12 mg/dL (7-17) 05/23/18 05:14 Creatinine 0.6 mg/dL (0.7-1.2) L 05/23/18 05:14 Estimated GFR > 60 ml/min 05/23/18 05:14 BUN/Creatinine Ratio 20 % 05/23/18 05:14 Glucose 107 mg/dL (65-100) H 05/23/18 05:14 POC Glucose 140 (70-105) H 05/24/18 16:59 Calcium 8.6 mg/dL (8.4-10.2) 05/23/18 05:14 Total Bilirubin 0.50 mg/dL (0.1-1.2) 05/20/18 16:27 AST 21 units/L (5-40) 05/20/18 16:27 ALT 16 units/L (7-56) 05/20/18 16:27 Alkaline Phosphatase 44 units/L (35-129) 05/20/18 16:27 Total Protein 6.1 g/dL (6.3-8.2) L 05/20/18 16:27 Albumin 4.0 g/dL (3.9-5) 05/20/18 16:27 Albumin/Globulin Ratio 1.9 % 05/20/18 16:27
[2018-05-24] MEDS: COLACE PO SCH (22:27)
[2018-05-24] MEDS: PEPCID PO SCH (22:27)
[2018-05-25] MEDS: PERCOCET 5/325 PO PRN ×2 (02:43→10:03)
[2018-05-25] MEDS: LOPRESSOR PO SCH ×3 (02:45→12:46)
[2018-05-25] MEDS: HumaLOG SUB-Q SCH ×2 (09:35→12:51)
[2018-05-25] MEDS: GLUCOPHAGE XR PO SCH (09:37)
[2018-05-25] MEDS: PEPCID PO SCH (09:38)
[2018-05-25] MEDS: ZOFRAN IV PRN (10:33)
[2018-05-25 10:41] VITALS: BP 155/64
[2018-05-25] MEDS: COLACE PO SCH (11:06)
[2018-05-25] MEDS: SODIUM CHLORIDE FLUSH SYRINGE 10 ML IV SCH (11:06)
--- NOTE | 2018-05-25 11:49 | Progress Note ---
Assessment and Plan Fall at home that resulted in fracture of her left ankle Paroxysmal atrial fibrillation spontaneous reversion to sinus rhythm on metoprolol and Xarelto Diabetes Hypertension on hydrochlorothiazide. Patient and have declined echocardiography for left ventricular function assessment. Recommendations: Cardiovascular status is stable. Continue metoprolol and Xarelto for parxysmal afib. Patient plans to follow up with her primary barrel stave inspector on discharge. Subjective Date of service: 05/25/18 Interval history: PT at bedside. No cardiac complaints. Stable sinus rhythm on telemetry. Objective Vital Signs Temp Pulse Resp Resp BP BP Pulse Ox 05/25/18 08:56 75 95 05/25/18 08:55 99.1 F 67 18 155/64 94 05/25/18 03:43 20 05/25/18 02:45 178/53 05/25/18 02:43 20 05/25/18 02:39 178/53 05/25/18 02:31 98.1 F 69 16 182/66 98 05/25/18 02:30 69 05/24/18 22:00 20 98 05/24/18 21:17 20 05/24/18 20:43 99.1 F 81 18 163/59 92 05/24/18 20:17 20 05/24/18 20:15 20 05/24/18 19:56 20 05/24/18 17:01 66 170/51 05/24/18 16:32 98.8 F 66 18 170/51 97 05/24/18 14:04 84 184/72 05/24/18 12:59 98.6 F 84 18 184/72 95 - Physical Examination General: No Apparent Distress HEENT: Positive: PERRL Cardiac: Positive: Reg Rate and Rhythm Extremities: Absent: edema
[2018-05-25] MEDS ORDERED: ZOFRAN ONE (15:16)
[2018-05-25] MEDS ORDERED: ZOFRAN ODT PO ONE (15:16)
--- NOTE | 2018-05-25 15:52 | Event Note ---
Date: 05/25/18 patient stable, d/c home
[2018-05-26] MEDS ORDERED: HCTZ PO SCH (11:30)
== END 2018-05-25 16:05 | disposition home health service (06) | DRG 494 ==
LOC: ED 15:39 → 2B-ACE 19:19
PROVIDERS: ADMIT Internal Medicine; ATTEND Internal Medicine
PROC: 0SSGXZZ Reposition Left Ankle Joint, External Approach (ICD-10-PCS; 2018-05-20)
PROC: 0QSK04Z Reposition Left Fibula with Internal Fixation Device, Open Approach (ICD-10-PCS; principal; 2018-05-21)
DX: S82.402A Unspecified fracture of shaft of left fibula, initial encounter for closed fracture (principal); S93.05XA Dislocation of left ankle joint, initial encounter; I10 Essential (primary) hypertension; K21.9 Gastro-esophageal reflux disease without esophagitis; E11.9 Type 2 diabetes mellitus without complications; I48.0 Paroxysmal atrial fibrillation; W01.0XXA Fall on same level from slipping, tripping and stumbling without subsequent striking against object, initial encounter; Y93.89 Activity, other specified; Y92.89 Other specified places as the place of occurrence of the external cause; Y99.8 Other external cause status
CPT/HCPCS: 36415; 80048; 80053; 82962; 85025; 85027; 85610; 85730; 93005; 93010; 94760; C1713; G8978-GP; G8979-GP; J0360; J0690; J1170; J1650; J1815; J2270; J2405; J2704; J3010; J7030; J7120; Q0162

== ENCOUNTER 2018-06-18 09:26 | Outpatient (CLI) | payer MEDICARE ==
--- NOTE | 2018-06-18 10:12 | XRay Report ---
LEFT ANKLE, 3 views: History: Pain in left ankle. Bone mineralization is normal. The distal left fibular fracture has been internally fixated with metal plate and screws since 05/21/18. Alignment appears anatomic. There also appears to be a nondisplaced fracture involving the posterior tibia at the ankle joint which was not mentioned on previous examinations. There is normal articulation at the ankle joint otherwise. There is suggestion of a few tiny calcific densities in the lateral ankle mortise on the oblique image. This could represent tiny bony fragments. IMPRESSION: Internally fixated distal fibular fracture is unremarkable. Nondisplaced fracture of the posterior tibia is also suspected, see above. Question tiny calcific densities in the joint space.
== END 2018-06-18 09:27 | disposition home or self-care (01) ==
LOC: XRAY 09:26
PROVIDERS: ATTEND Orthopaedic Surgery
DX: M25.572 Pain in left ankle and joints of left foot (principal); I10 Essential (primary) hypertension; E11.69 Type 2 diabetes mellitus with other specified complication

== ENCOUNTER 2022-04-05 04:39 | Emergency (ER) | payer MEDICARE ==
[2022-04-05] MEDS ORDERED: cloNIDine 0.2 MG TAB PO ONE (06:35)
[2022-04-05] MEDS ORDERED: BUTALB/ACETAMINOPHEN/CAFFEINE TAB PO ONE ×2 (06:44→10:00)
--- NOTE | 2022-04-05 06:47 | Emergency Department Report ---
HPI - General Chief Complaint: High BP Time Seen by Provider: 04/05/22 06:35 - HPI HPI: Room 1 The patient is a 76-year-old female present with chief complaint headache. The patient states she was instructed to hold her blood pressure medication in pr eparation for colonoscopy. The patient states she has had a headache intermittently for the past week but last night the pain worsened. Eventually this morning the patient called EMS secondary to the pain and she was found to be hypertensive at 252/100. Patient denies any preceding trauma or history of fever. Since she is arrived in the ED the patient's blood pressure has improved to 149/49 and the patient states her headache has decreased to a 4/10. ED Past Medical Hx - Past Medical History Previous Medical History?: Yes Hx Hypertension: Yes Hx Diabetes: Yes - Surgical History Past Surgical History?: No Hx Cholecystectomy: Yes Additional Surgical History: Ankle fracture repair - Family History Family history: no significant - Social History Smoking Status: Never Smoker Substance Use Type: None - Medications Home Medications: Home Medications Medication Instructions Recorded Confirmed Last Taken Type metFORMIN XR [Glucophage XR] 1,000 mg PO BID 05/21/18 05/21/18 1 Day Ago History ~05/20/18 Docusate Sodium [Colace] 100 mg PO BID #60 capsule 05/24/18 Unknown Rx HCTZ 25 mg PO DAILY 05/24/18 05/24/18 05/19/18 History Metoprolol [Lopressor TAB] 25 mg PO Q8H #90 tablet 05/24/18 Unknown Rx Ondansetron [Zofran TAB] 4 mg PO Q8HR PRN #20 tablet 05/24/18 Unknown Rx Rivaroxaban [Xarelto] 15 mg PO QPM@1700 #30 tablet 05/24/18 Unknown Rx Vitamin D (Nf) 1,000 mg PO DAILY 05/24/18 05/24/18 05/19/18 History oxyCODONE /ACETAMINOPHEN [Percocet 1 tab PO Q6H PRN #20 tablet 05/24/18 Unknown Rx 5/325 mg] polyethylene glycoL 3350 [Miralax 17 gm PO QDAY PRN #6 packet 05/24/18 Unknown Rx 3350] Butalb/Acetamin/Caff 50-325-40 2 tab PO Q8HR PRN #10 tablet 05/07/22 Unknown Rx [Fioricet 50-325-40] ED Review of Systems ROS: Stated complaint: HYPERTENSION Other details as noted in HPI Constitutional: denies: fever Eyes: denies: eye pain ENT: denies: throat pain Respiratory: no symptoms reported Cardiovascular: denies: chest pain Endocrine: no symptoms reported Gastrointestinal: nausea Genitourinary: denies: dysuria Musculoskeletal: denies: back pain Neurological: headache Physical Exam - Physical Exam Vital Signs: Vital Signs 04/05/22 04/05/22 04/05/22 04:47 05:01 05:15 Temperature Pulse Rate 67 64 Respiratory 12 12 Rate Blood Pressure 176/54 161/60 165/55 Blood Pressure [Right] O2 Sat by Pulse 97 97 95 Oximetry 04/05/22 04/05/22 04/05/22 05:21 05:25 05:31 Temperature 98.3 F Pulse Rate 68 65 Respiratory 15 12 Rate Blood Pressure 205/79 167/59 Blood Pressure 176/54 [Right] O2 Sat by Pulse 97 93 Oximetry 04/05/22 04/05/22 04/05/22 05:45 05:46 06:01 Temperature Pulse Rate 63 66 Respiratory 11 L 13 Rate Blood Pressure 159/61 164/51 Blood Pressure [Right] O2 Sat by Pulse 93 97 95 Oximetry 04/05/22 04/05/22 06:15 06:31 Temperature Pulse Rate 63 60 Respiratory 12 12 Rate Blood Pressure 158/48 149/49 Blood Pressure [Right] O2 Sat by Pulse 91 95 Oximetry Physical Exam: GENERAL: The patient is well-developed well-nourished female lying on stretcher not appearing to be in acute distress. [] HEENT: Normocephalic. Atraumatic. Extraocular motions are intact. Patient has moist mucous membranes. NECK: Supple. Trachea midline CHEST/LUNGS: Clear to auscultation. There is no respiratory distress noted. HEART/CARDIOVASCULAR: Regular. There is no tachycardia. There is no gallop rub or murmur. ABDOMEN: Abdomen is soft, nontender. Patient has normal bowel sounds. There is no abdominal distention. SKIN: There is no rash. There is no edema. There is no diaphoresis. NEURO: The patient is awake, alert, and oriented. The patient is cooperative. The patient has no focal neurologic deficits. The patient has normal speech. Cranial nerves II through XII grossly intact. GCS 15 MUSCULOSKELETAL: There is no evidence of acute injury. ED Course Vital Signs 04/05/22 04/05/22 04/05/22 04:47 05:01 05:15 Temperature Pulse Rate 67 64 Respiratory 12 12 Rate Blood Pressure 176/54 161/60 165/55 Blood Pressure [Right] O2 Sat by Pulse 97 97 95 Oximetry 04/05/22 04/05/22 04/05/22 05:21 05:25 05:31 Temperature 98.3 F Pulse Rate 68 65 Respiratory 15 12 Rate Blood Pressure 205/79 167/59 Blood Pressure 176/54 [Right] O2 Sat by Pulse 97 93 Oximetry 04/05/22 04/05/22 04/05/22 05:45 05:46 06:01 Temperature Pulse Rate 63 66 Respiratory 11 L 13 Rate Blood Pressure 159/61 164/51 Blood Pressure [Right] O2 Sat by Pulse 93 97 95 Oximetry 04/05/22 04/05/22 06:15 06:31 Temperature Pulse Rate 63 60 Respiratory 12 12 Rate Blood Pressure 158/48 149/49 Blood Pressure [Right] O2 Sat by Pulse 91 95 Oximetry ED Medical Decision Making - Lab Data Result diagrams: 04/05/22 07:17 04/05/22 07:17 Laboratory Tests 04/05/22 04/05/22 07:17 07:17 WBC 9.0 RBC 3.70 Hgb 11.0 Hct 32.8 MCV 89 MCH 30 MCHC 34 RDW 14.5 Plt Count 261 Lymph % (Auto) 24.1 [place] % (Auto) 9.8 H Eos % (Auto) 2.2 Baso % (Auto) 0.5 Lymph # (Auto) 2.2 [place] # (Auto) 0.9 H Eos # (Auto) 0.2 Baso # (Auto) 0.0 Seg Neutrophils % 63.4 Seg Neutrophils # 5.7 Sodium 136 L Potassium 4.7 Chloride 99.2 Carbon Dioxide 27 Anion Gap 15 BUN 10 Creatinine 0.8 Estimated GFR > 60 BUN/Creatinine Ratio 13 Glucose 108 H Calcium 9.0 - Radiology Data Radiology results: report reviewed (CT head), image reviewed (CT head) [facility] [address] [place] [address] Cat Scan Report Signed Patient: ALFREDITO HERNANDEZ MR#: [id number] : 1945 Acct:[id number] Age/Sex: 76 / F ADM Date: 04/05/22 Loc: ED Attending Dr: Ordering Physician: PETEY SHAY MD Date of Service: 04/05/22 Procedure(s): CT head/brain wo con Accession Number(s): [id number] cc: PETEY SHAY MD CT HEAD WITHOUT CONTRAST INDICATION / CLINICAL INFORMATION: Hypertension, headache. TECHNIQUE: All CT scans at this location are performed using CT dose reduction for ALARA by means of automated exposure control. COMPARISON: None available. FINDINGS: BRAIN PARENCHYMA: No acute intracranial hemorrhage. No evidence of recent infarct. No mass effect or midline shift. Mild chronic small vessel ischemic changes with small chronic lacunar infarcts of the basal ganglia bilaterally. VENTRICULAR SYSTEM/EXTRA-AXIAL SPACES: Age-related cerebral atrophy. No extra-axial fluid collection. ORBITS: No acute findings. SKELETAL SYSTEM/SOFT TISSUES: Normal bones and soft tissues. PARANASAL SINUSES/MASTOID AIR CELLS: No significant abnormality. ADDITIONAL FINDINGS: None. IMPRESSION: 1. No acute intracranial abnormality. Signer Name: Gianfranco England MD Signed: 04/05/2022 8:15 AM Workstation Name: [id number] Transcribed By: JS Dictated By: GIANFRANCO ENGLAND MD Electronically Authenticated By: GIANFRANCO ENGLAND MD Signed Date/Time: 04/05/22814 DD/ 2 TD/TT: - Differential Diagnosis Uncontrolled hypertension, hypertensive urgency, hypertensive emergency Critical care attestation.: If time is entered above; I have spent that time in minutes in the direct care of this critically ill patient, excluding procedure time. ED Disposition Clinical Impression: Hypertension, Headache Disposition: 01 HOME / SELF CARE / HOMELESS Is pt being admited?: No Does the pt Need Aspirin: No Condition: Stable Instructions: Hypertension (ED), Hypertension, Adult Additional Instructions: Return to the emergency department should you develop worsening symptoms, inability to tolerate food or liquids, high fever or any other concerns Prescriptions: Butalb/Acetamin/Caff 50-325-40 [Fioricet 50-325-40] 2 tab PO Q8HR PRN #10 tablet PRN Reason: Headache Referrals: PRIMARY CARE, [Referring] - 3-5 Days NUNU BARBER MD [Staff Physician] - 3-5 Days (Dr. Barber is a neurologist. Please follow-up with him for further evaluation if your symptoms persist) Time of Disposition: 09:02
[2022-04-05 07:38] LABS: Basophils % (Auto) 0.5 % (0.0-1.8); Eosinophils # (Auto) 0.2 K/mm3 (0.0-0.4); Eosinophils % (Auto) 2.2 % (0.0-4.3); Hematocrit 32.8 % (30.3-42.9); Lymphocytes # (Auto) 2.2 K/mm3 (1.2-5.4); Lymphocytes % (Auto) 24.1 % (13.4-35.0); Mean Corpuscular HGB Conc 34 % (30-34); Mean Corpuscular Volume 89 fl (79-97); Monocytes # (Auto) 0.9 K/mm3 (0.0-0.8); Monocytes % (Auto) 9.8 % (0.0-7.3); Platelet Count 261 K/mm3 (140-440); Red Cell Distribution Width 14.5 % (13.2-15.2)
[2022-04-05 07:59] LABS: BUN/Creatinine Ratio 13; Blood Urea Nitrogen 10 mg/dL (7-17); Hemolysis Index 2
--- NOTE | 2022-04-05 08:19 | Cat Scan Report ---
CT HEAD WITHOUT CONTRAST INDICATION / CLINICAL INFORMATION: Hypertension, headache. TECHNIQUE: All CT scans at this location are performed using CT dose reduction for ALARA by means of automated exposure control. COMPARISON: None available. FINDINGS: BRAIN PARENCHYMA: No acute intracranial hemorrhage. No evidence of recent infarct. No mass effect or midline shift. Mild chronic small vessel ischemic changes with small chronic lacunar infarcts of the basal ganglia bilaterally. VENTRICULAR SYSTEM/EXTRA-AXIAL SPACES: Age-related cerebral atrophy. No extra-axial fluid collection. ORBITS: No acute findings. SKELETAL SYSTEM/SOFT TISSUES: Normal bones and soft tissues. PARANASAL SINUSES/MASTOID AIR CELLS: No significant abnormality. ADDITIONAL FINDINGS: None. IMPRESSION: 1. No acute intracranial abnormality. Signer Name: Adan England MD Signed: 04/05/2022 8:15 AM Workstation Name: [id number]
[2022-04-05 09:30] VITALS: BP 151/58
== END 2022-04-05 09:29 | disposition home or self-care (01) ==
LOC: ED 04:39
DX: I10 Essential (primary) hypertension (principal); R51.9 Headache, unspecified; E11.8 Type 2 diabetes mellitus with unspecified complications; Z98.890 Other specified postprocedural states
CPT/HCPCS: 36415; 70450; 80048; 85025; 99284